=== PATIENT | female | born 1985 | race Caucasian/White ===

== ENCOUNTER 2020-02-27 11:01 | Outpatient (REF) | payer BC, SELFPAY ==
[2020-02-28 12:57] LABS: H Pylori Breath Test NOT DETECTED (NOT DETECTED)
== END 2020-02-27 11:02 | disposition home or self-care (01) ==
LOC: HO.LNP 11:01
PROVIDERS: PCP Internal Medicine; Referring Provider Internal Medicine; Visit Provider Surgery
DX: Z01.818 Encounter for other preprocedural examination (principal); E66.01 Morbid (severe) obesity due to excess calories; Z68.42 Body mass index [BMI] 45.0-49.9, adult; R06.02 Shortness of breath
CPT/HCPCS: 83013

== ENCOUNTER → 2020-03-12 08:06 | Outpatient (BNVA) | payer BC, SELFPAY | PROVIDERS: PCP Internal Medicine; Visit Provider Surgery | DX: Z76.89 Persons encountering health services in other specified circumstances (principal) ==

== ENCOUNTER 2020-03-23 12:38 | Outpatient (REF) | payer BC, SELFPAY ==
--- NOTE | 2020-03-23 12:46 | ECG_ITS ---
Test Reason : BARIATRIC SURG ANEST Blood Pressure : / mmHG Vent. Rate : 081 BPM Atrial Rate : 081 BPM P-R Int : 142 ms QRS Dur : 078 ms QT Int : 398 ms P-R-T Axes : 050 041 036 degrees QTc Int : 462 ms Normal sinus rhythm Normal ECG No previous ECGs available Referred By: Rosie Lyons Electronically Signed By:AUSTIN GRANT
--- NOTE | 2020-03-23 13:06 | XR_ITS ---
EXAMINATION: XR CHEST CLINICAL INFORMATION: Shortness of breath COMPARISON: None TECHNIQUE: 2 views of the chest were obtained. FINDINGS: No significant abnormality is noted involving the heart, lungs, mediastinum, bony thorax or soft tissues. XR/XR chest 2V IMPRESSION: Unremarkable examination.
[2020-03-23 13:42] LABS: MANUAL DIFF FLAG NO
[2020-03-23 13:49] LABS: Basophils Percent Auto 0.7 % (0-2); Eosinophils Absolute Auto 0.1 X10*3/uL (0.0-0.4); Hematocrit 42.2 % (37-47); Hemoglobin 13.6 g/dl (12.0-16.0); Imm Gran Abs Auto 0.01 X10*3/uL (0.00-0.03); Imm Gran Pct Auto 0.2 % (0.0-0.4); Lymphocytes Absolute Auto 1.4 X10*3/uL (1.2-4.9); Lymphocytes Percent Auto 22.5 % (20-40); Mean Corpuscular HGB Conc 32.2 g/dl (31.0-35.0); Mean Corpuscular Hemoglobin 28.5 pg (27.0-33.0); Mean Corpuscular Volume 88.3 fL (80-98); Mean Platelet Volume 9.5 fL (9.4-12.3); Monocytes Absolute Auto 0.4 X10*3/uL (0.1-1.2); Monocytes Percent Auto 6.8 % (2-11); Neutrophils Absolute Auto 4.2 X10*3/uL (2.0-8.3); Neutrophils Percent Auto 68.8 % (45-73); Platelet Count 296 X10*3/uL (160-400); Red Blood Count 4.78 X10*6/uL (4.20-5.50); Red Cell Distribution Width 13.3 % (11.0-16.0)
[2020-03-23 14:11] LABS: Alanine Aminotransferase 26 U/L (0-31); Albumin Level 4.3 g/dL (3.5-5.0); Alkaline Phosphatase 73 U/L (39-117); Anion Gap 15 (12-20); Aspartate Amino Transferase 20 U/L (5-31); Bilirubin Total 0.4 mg/dL (0.0-1.0); Blood Urea Nitrogen 11 mg/dL (9-16); C Reactive Protein 1.29 mg/dL (< or = 0.50); Calcium 9.1 mg/dL (8.4-10.2); Carbon Dioxide 23 mmol/L (22-29); Chloride 105 mmol/L (96-108); Cholesterol 203 mg/dL; Estimated Glomerular Filt Rate > 60; Glucose Fasting 91 mg/dL (60-99); HDL Cholesterol 48 mg/dL; Iron 47 mcg/dL (30-160); LDL Cholesterol Calculated 136 mg/dl; Percent Iron Saturation 13 % (15-50); Potassium 4.2 mmol/l (3.3-5.1); Sodium 139 mmol/L (135-145); Total Iron Binding Capacity 356 mcg/dL (228-428); Total Protein 7.4 g/dL (6.5-8.0); Triglycerides 97 mg/dL; Unsaturated Iron Binding 309 ug/dL
[2020-03-23 14:17] LABS: Thyroid Stimulating Hormone 1.76 uIU/mL (0.32-4.0); Vitamin D 25-OH Total 28.7 ng/mL (>30)
[2020-03-23 14:23] LABS: Vitamin B12 640 pg/mL (200-900)
[2020-03-25 10:42] LABS: Calcium (PTHI) 9.2 mg/dL (8.6-10.2); PTHI 34 pg/mL (14-64)
[2020-03-26 00:53] LABS: Zinc 70 mcg/dL (60-130)
[2020-03-26 18:33] LABS: Vitamin B1 9 nmol/L (8-30)
[2020-03-28 16:07] LABS: Vitamin A 32 mcg/dL (38-98)
== END 2020-03-23 12:39 | disposition home or self-care (01) ==
LOC: HO.LAB 12:38
PROVIDERS: PCP Internal Medicine; Visit Provider Surgery
DX: Z01.818 Encounter for other preprocedural examination (principal); R06.02 Shortness of breath
CPT/HCPCS: 36415; 71046; 80053; 80061; 82306; 82607; 83540; 83970; 84425; 84443; 84590; 84630; 85025; 86140; 93005

== ENCOUNTER → 2020-03-26 08:11 | Outpatient (BNVA) | payer BC, SELFPAY | PROVIDERS: PCP Internal Medicine; Visit Provider Dietitian, Registered ==

== ENCOUNTER → 2020-04-16 08:28 | Outpatient (BNVA) | payer BC, SELFPAY | PROVIDERS: PCP Internal Medicine; Visit Provider Dietitian, Registered ==

== ENCOUNTER 2020-05-22 16:17 | Outpatient (REF) | payer BC, SELFPAY ==
[2020-05-28 10:36] LABS: Vitamin A 50 mcg/dL (38-98)
== END 2020-05-22 16:18 | disposition home or self-care (01) ==
LOC: HO.LAB 16:17
PROVIDERS: Visit Provider Surgery
DX: Z01.818 Encounter for other preprocedural examination (principal); E50.9 Vitamin A deficiency, unspecified
CPT/HCPCS: 36415; 84590

== ENCOUNTER → 2020-05-25 15:47 | Outpatient (BNVA) | payer BC, SELFPAY | PROVIDERS: PCP Internal Medicine; Visit Provider Surgery ==

== ENCOUNTER → 2020-07-16 13:34 | Outpatient (BNVA) | payer BC, SELFPAY | PROVIDERS: PCP Internal Medicine; Visit Provider Surgery ==

== ENCOUNTER → 2020-07-28 15:12 | Outpatient (BNVA) | payer BC, SELFPAY | PROVIDERS: PCP Internal Medicine; Visit Provider Surgery | DX: Z01.818 Encounter for other preprocedural examination (principal); R06.02 Shortness of breath ==

== ENCOUNTER → 2020-08-07 13:21 | Outpatient (BNVA) | payer BC, SELFPAY | PROVIDERS: PCP Internal Medicine; Visit Provider Surgery ==

== ENCOUNTER 2020-08-11 06:37 | Inpatient (IN) | payer BC, SELFPAY ==
[2020-08-04 16:28] VITALS: BMI 44.2
--- NOTE | 2020-08-07 15:41 | ECG_ITS ---
Test Reason : R06.02 SOB Blood Pressure : / mmHG Vent. Rate : 077 BPM Atrial Rate : 077 BPM P-R Int : 122 ms QRS Dur : 080 ms QT Int : 426 ms P-R-T Axes : 050 054 053 degrees QTc Int : 482 ms Normal sinus rhythm with sinus arrhythmia Prolonged QT Abnormal ECG When compared with ECG of 23-MAR-2020 12:57, No significant change was found Referred By: Rosie Lyons Electronically Signed By:Ramírez Mckenna
[2020-08-07 16:31] LABS: Glucose Urine UA NEG (NEG); Leukocyte Esterase Urine NEG (NEG); Nitrite Urine NEG (NEG); UPreg QC Valid YES; Urine Blood NEG (NEG); Urine Ketones NEG (NEG); Urine Pregnancy NEGATIVE (NEGATIVE); Urine Protein NEG (NEG-TRACE)
[2020-08-07 16:32] LABS: Appearance Urine CLEAR; Color Urine YELLOW
[2020-08-08 11:17] LABS: MANUAL DIFF FLAG NO
[2020-08-08 11:26] LABS: Basophils Percent Auto 0.4 % (0-2); Eosinophils Absolute Auto 0.1 X10*3/uL (0.0-0.4); Hematocrit 41.7 % (37-47); Hemoglobin 13.5 g/dl (12.0-16.0); Imm Gran Abs Auto 0.01 X10*3/uL (0.00-0.03); Imm Gran Pct Auto 0.2 % (0.0-0.4); Lymphocytes Absolute Auto 1.3 X10*3/uL (1.2-4.9); Lymphocytes Percent Auto 25.5 % (20-40); Mean Corpuscular HGB Conc 32.4 g/dl (31.0-35.0); Mean Corpuscular Hemoglobin 29.2 pg (27.0-33.0); Mean Corpuscular Volume 90.3 fL (80-98); Monocytes Absolute Auto 0.4 X10*3/uL (0.1-1.2); Monocytes Percent Auto 7.4 % (2-11); Neutrophils Absolute Auto 3.4 X10*3/uL (2.0-8.3); Neutrophils Percent Auto 65.5 % (45-73); Platelet Count 298 X10*3/uL (160-400); Red Blood Count 4.62 X10*6/uL (4.20-5.50); Red Cell Distribution Width 12.8 % (11.0-16.0); White Blood Count 5.1 X10*3/uL (4.8-10.8)
[2020-08-08 11:45] LABS: Anion Gap 14 (12-20); Blood Urea Nitrogen 15 mg/dL (9-16); Carbon Dioxide 23 mmol/L (22-29); Chloride 107 mmol/L (96-108); Estimated Glomerular Filt Rate > 60; Glucose Random 109 mg/dL (60-115); Potassium 4.6 mmol/L (3.3-5.1); Sodium 139 mmol/L (135-145)
[2020-08-08 11:52] LABS: Prothrombin Time 12.2 SEC (10.8-13.0)
[2020-08-08 11:55] LABS: Partial Thromboplastin Time 34.5 SEC (24.1-38.0)
--- NOTE | 2020-08-10 08:51 | HO.ANESPROP2 ---
Documented by User: Kinsey Pak 08/10/20 08:53 HPI - Anesthesia Eval Consult details Narrative: 34yo F for Gastrectomy Sleeve,EGD,poss diaphragmatic hernia,poss ventral hernia,poss open, PMFSH Active Problems Active Problems: All Active Problems (Updated 08/04/20 @ 16:24 by Grisel Cisneros) Preoperative examination (Acute) Body mass index (BMI) of 45.0-49.9 in adult (Acute) Shortness of breath (Acute) Vitamin A deficiency (Acute) BMI 40.0-44.9, adult (Acute) Morbid obesity due to excess calories (Acute) Past Medical History Medical History Anxiety Depression Headache Low back pain Morbid obesity due to excess calories PCOS (polycystic ovarian syndrome) Family History Family History Mother Breast cancer Factor 5 Leiden mutation, heterozygous Maternal Grandmother Breast cancer Brother Factor 5 Leiden mutation, heterozygous Sister No problems noted. Father Heart attack Heart disease Maternal Grandfather Colon cancer Type 2 diabetes mellitus Paternal Grandmother Type 2 diabetes mellitus Paternal Grandfather Type 2 diabetes mellitus Surgical History Surgical History History of adjustable gastric banding History of removal of laparoscopic gastric banding device History of removal of ovarian cyst History of tonsillectomy and adenoidectomy Hx of wisdom tooth extraction Social History Social History Are you a primary career consultant to a significant other at home: No Do you presently have visiting nurse or other home services: No Alcohol intake: current Alcohol intake frequency: a few times a month Patient Tobacco Use Status: Never used Tobacco Use of substances other than those prescribed or required for medical reasons: No Have you been hit, kicked, punched, or otherwise hurt by someone within the past year? If so, by whom?: No Are you DNR?: No Advance Directives: No Advance Directives Information Provided: No Advance Directives on File: No Patient : No FDLMP: 07/04/2020 : No Poor oral hygiene: No Meds Allergies Allergy/AdvReac Type Severity Reaction Status Date / Time latex Allergy Severe Rash, Verified 08/04/20 16:33 brady skin Home Medications Medication Instructions Recorded Confirmed Last Taken Type bupropion HCl 150 mg 24 hr tablet, 150 mg PO DAILY 02/27/20 08/04/20 Unknown History extended release fluoxetine 20 mg capsule 20 mg PO DAILY 02/27/20 07/28/20 Unknown History trazodone 50 mg tablet 25 mg PO BEDTIME PRN 02/27/20 08/04/20 Unknown History cholecalciferol (vitamin D3) 250 250 mcg PO DAILY 05/25/20 08/04/20 Unknown History mcg (10,000 unit) capsule drospirenone 3 mg-ethinyl 1 tab PO DAILY 05/25/20 08/04/20 Unknown History estradiol 0.02 mg tablet alprazolam 0.5 mg tablet 0.5 mg PO BID PRN 07/28/20 08/04/20 Unknown History Exam Exam Date and Time: August 10, 2020 0851 Height,Weight and Vital Signs: Height 5 ft 2 in Weight 109.769 kg Pertinent Lab Results Pertinent Lab Results: Laboratory Tests 08/07/20 08/07/20 08/08/20 15:35 15:35 10:53 WBC 5.1 RBC 4.62 Hgb 13.5 Hct 41.7 MCV 90.3 MCH 29.2 MCHC 32.4 RDW 12.8 Plt Count 298 MPV 9.0 L Immature Gran % (Auto) 0.2 Neut % (Auto) 65.5 Lymph % (Auto) 25.5 Walker % (Auto) 7.4 Eos % (Auto) 1.0 Baso % (Auto) 0.4 Lymph # (Auto) 1.3 Walker # (Auto) 0.4 Eos # (Auto) 0.1 Baso # (Auto) 0.0 Abs Immat Gran (auto) 0.01 Absolute Neuts (auto) 3.4 Absolute Nucleated RBC 0.000 Nucleated RBC % (auto) 0.0 PT INR APTT Sodium Potassium Chloride Carbon Dioxide Anion Gap BUN Creatinine Estim Creat Clear Calc Estimated GFR Random Glucose Calcium Albumin Urine Color YELLOW Urine Appearance CLEAR Urine pH 6.0 Ur Specific Ringold 1.020 Urine Protein NEG Urine Glucose (UA) NEG Urine Ketones NEG Urine Blood NEG Urine Nitrite NEG Ur Leukocyte Esterase NEG Urine Test NEGATIVE Blood Type Antibody Screen 08/08/20 08/08/20 08/08/20 10:53 10:53 10:55 WBC RBC Hgb Hct MCV MCH MCHC RDW Plt Count MPV Immature Gran % (Auto) Neut % (Auto) Lymph % (Auto) Walker % (Auto) Eos % (Auto) Baso % (Auto) Lymph # (Auto) Walker # (Auto) Eos # (Auto) Baso # (Auto) Abs Immat Gran (auto) Absolute Neuts (auto) Absolute Nucleated RBC Nucleated RBC % (auto) PT 12.2 INR 1.0 APTT 34.5 Sodium 139 Potassium 4.6 Chloride 107 Carbon Dioxide 23 Anion Gap 14 BUN 15 Creatinine 0.82 Estim Creat Clear Calc 115.0 Estimated GFR > 60 Random Glucose 109 Calcium 9.0 Albumin 4.0 Urine Color Urine Appearance Urine pH Ur Specific Ringold Urine Protein Urine Glucose (UA) Urine Ketones Urine Blood Urine Nitrite Ur Leukocyte Esterase Urine Test Blood Type A Positive Antibody Screen NEGATIVE Narrative Narrative: EKG 08/2020 Vent. Rate : 077 BPM Atrial Rate : 077 BPM P-R Int : 122 ms QRS Dur : 080 ms QT Int : 426 ms P-R-T Axes : 050 054 053 degrees QTc Int : 482 ms Normal sinus rhythm with sinus arrhythmia Prolonged QT Abnormal ECG When compared with ECG of 23-MAR-2020 12:57, No significant change was found Assessment and Plan Assessment Anesthesia Assessment: Chart Reviewed Documented by User: Jagdeep Jones 08/11/20 07:04 [facility] Past Medical History Medical History Anxiety Depression Headache Low back pain Morbid obesity due to excess calories PCOS (polycystic ovarian syndrome) Family History Family History Mother Breast cancer Factor 5 Leiden mutation, heterozygous Maternal Grandmother Breast cancer Brother Factor 5 Leiden mutation, heterozygous Sister No problems noted. Father Heart attack Heart disease Maternal Grandfather Colon cancer Type 2 diabetes mellitus Paternal Grandmother Type 2 diabetes mellitus Paternal Grandfather Type 2 diabetes mellitus Surgical History Surgical History History of adjustable gastric banding History of removal of laparoscopic gastric banding device History of removal of ovarian cyst History of tonsillectomy and adenoidectomy Hx of wisdom tooth extraction Social History Social History Are you a primary career consultant to a significant other at home: No Do you presently have visiting nurse or other home services: No Alcohol intake: current Alcohol intake frequency: a few times a month Patient Tobacco Use Status: Never used Tobacco Use of substances other than those prescribed or required for medical reasons: No Have you been hit, kicked, punched, or otherwise hurt by someone within the past year? If so, by whom?: No Are you DNR?: No Advance Directives: No Advance Directives Information Provided: No Advance Directives on File: No Patient : No FDLMP: 07/04/2020 : No Poor oral hygiene: No Meds Allergies Allergy/AdvReac Type Severity Reaction Status Date / Time latex Allergy Severe Rash, Verified 08/04/20 16:33 brady skin Home Medications Medication Instructions Recorded Confirmed Last Taken Type bupropion HCl 150 mg 24 hr tablet, 150 mg PO DAILY 02/27/20 08/04/20 Unknown History extended release fluoxetine 20 mg capsule 20 mg PO DAILY 02/27/20 07/28/20 Unknown History trazodone 50 mg tablet 25 mg PO BEDTIME PRN 02/27/20 08/04/20 Unknown History cholecalciferol (vitamin D3) 250 250 mcg PO DAILY 05/25/20 08/04/20 Unknown History mcg (10,000 unit) capsule drospirenone 3 mg-ethinyl 1 tab PO DAILY 05/25/20 08/04/20 Unknown History estradiol 0.02 mg tablet alprazolam 0.5 mg tablet 0.5 mg PO BID PRN 07/28/20 08/04/20 Unknown History Exam Airway Mallampati Class: III TM Dist: >3cm Neck ROM: Full Loose/Missing/Broken Teeth: No Heart: [id number] Lungs: cta b/l Assessment and Plan Assessment Anesthesia Assessment: Anesthesia Plan Discussed, PAT Visit and Chart Reviewed Final Anesthetic Review NPO: Yes ASA Class: II Final Preanesthetic Review: No Changes in Pt Med Stat, Meds/Allgs Chart Reviewed, Consent Obtained/Reviewed and Anes Risks/Benef Reviewed Patient Risk: Intermediate Procedure Risk: Low Assessment/Block/Sedation in SS: Assess/Block/Sedation-SS Anesthetic Plan Anesthetic Plan: GA and Agree w/ Assess. and Plan
[2020-08-11] VITALS (16 sets, daily range): BP systolic 112–148; BP diastolic 67–93; PULSE 67–98; RESP 16–22; TEMP 36.1–36.7; O2SAT 97–100
--- NOTE | ~2020-08-11 | XR_ITS ---
EXAMINATION: XR CHEST CLINICAL INFORMATION: Shortness of breath COMPARISON: Previous chest x-ray March 2020 TECHNIQUE: 2 views of the chest were obtained. FINDINGS: The cardiac and mediastinal contours are normal. The lungs are clear. There is no pleural effusion or pneumothorax. There are degenerative changes of the spine. XR/XR chest 2V IMPRESSION: No evidence for acute disease in the chest.
[2020-08-11] MEDS: Scopolamine 1.5 MG PATCH.TD.3 TRANSDERMA (06:53)
[2020-08-11 06:58] LABS: COVID-19 Test Negative (Negative); IDNOW Serial# 9DD0AD1C
--- NOTE | 2020-08-11 07:40 | MHC.SHP ---
Pre-Procedural Eval Section B Chief Complaint: s/p gastric sleeve Allergies: Allergies Allergy/AdvReac Type Severity Reaction Status Date / Time latex Allergy Severe Rash, Verified 08/04/20 16:33 brady skin Plan I have reviewed the history and physical and performed a pertinent physical examination on my patient. No changes have occurred unless specified.
[2020-08-11] MEDS: Lactated Ringers 1,000 ML 100 ML IVCONT (07:46)
[2020-08-11 08:00] LABS: UPreg QC Valid YES; Urine Pregnancy NEGATIVE (NEGATIVE)
--- NOTE | 2020-08-11 10:40 | PM.OP ---
Brief Operative Note Date of Service: 08/11/20 Pre-op diagnosis: Morbid obesity BMI 44.4 Post-op diagnosis: other (Hiatal hernia) Procedure: Laparoscopic sleeve gastrectomy, hiatal hernia repair, Aroldo block, and intraoperative endoscopy Implants: covidien teresita Surgeon: Rosie Lyons MD Anesthesia: GETA Was an Non Licensed Nuclear Plant Operator used for this Procedure?: Yes Non Licensed Nuclear Plant Operator: Sonia Corrales Estimated blood loss (mL): 10 Pathology: other (Partial gastrectomy) Condition: stable Disposition: PACU
--- NOTE | 2020-08-11 10:42 | P.OP_ITS ---
Operative Note Operative Note Date of Service: 08/11/20 Narrative: Patient was brought into the operating room and placed on the operating room table in the supine position. General anesthesia was induced. Normal DVT prophylaxis was instituted and the patient received 2 grams of cefotetan preoperatively. The abdomen was then prepped and draped in the normal sterile fashion. A safety time-out was performed. A mixture of 1% lidocaine with epinephrine and ?% Marcaine plain was used to an esthetize the planned incision site in the left upper quadrant. A #11 scalpel was used to make a 5 mm left upper quadrant transverse incision through which a veress needle was placed. Three pops were heard going through the fascia. A saline drop test was used to confirm that the veress needle was intraabdominal. An optiview technique was then used to place a 5mm port in the left upper quadrant. A 5 mm 30 degree laproscope was then placed through this port and the abdominal cavity was surveyed and there were a few omental adhesions to the epigastric abdominal wall. We took these of mental adhesions down using LigaSure device. The patient was placed in reverse Trendelenburg positioning. A ronan liver retractor was then placed in the subxyphoid position and it was used to hold up the left lobe of the liver to the abdominal wall. This was secured to the bed using the liver retractor sharif. A FABIÁN block was then performed for pain control on the right side of the abdomen. A 5 mm port was placed in the right upper quadrant near the falciform ligament. A 12 mm port was then placed in the mid epigastrium. One additional 5 mm port was placed in the left upper quadrant just to the left of the placement of the first port. I then performed a FABIÁN block on the left side of the abdomen. I then removed the epigastric fat pad; there was a moderate anterior hiatal hernia noted. I reapproximated the left and right crura with a total of 2 stitches of 2-0 ethibond and a laparoscopic knot pusher. There was no residual hiatal hernia. We took down the adhesions the medial aspect of the stomach to the overlying left lobe of the liver where the previous gastric band had been placed. We also opened up the previous fundoplication from the prior gastric banding. This dissection was com pleted using LigaSure device. I then opened up the angle of His. We then gained entry into the lesser sac about 4-5 cm from the pylorus. I had anesthesia place a 34 Kazakh orogastric tube into the distal antrum to use as a sizing tool for gastric pouch size. I divided the short gastric vessels up to the angle of His. We then started the creation of the gastric pouch by firing a 60 mm purple load endostapler up the stomach about 4-5 cm from the pylorus. We completed the creation of the gastric pouch using a total of 4 firings of a 60 mm purple load stapler. We had anesthesia remove the orogast scottie tube, then we clamped across the distal antrum using a fired 60 mm endostapler. We flattened the patient and then instilled normal saline surrounding the newly created staple line. I then performed an on-table endoscopy. I passed the gastroscopy into the posterior oropharynx and down the esophagus evaluating the esophageal mucosa which was normal. There was no evidence of hiatal hernia. I passed the gastroscope into the gastric pouch and insufflated the gastric pouch. There was healthy pink mucosa and no evidence of active bleeding. There was no evidence of leak on laparoscopy. I desufflated the gastric pouch and removed the endoscope. I removed the endostapler from the abdomen and suctioned the fluid from the left upper quadrant. I then removed the partial gastrectomy specimen through the epigastric 12 mm port site. I reapproximated the 12 mm port using a 0 maxon suture with a laparoscopic suture passer. I instilled local anesthetic into the fascial closure site and tied the suture down at a pressure of 8-10 mm of Hg. There was no residual fascial defect. We removed the liver retractor and the left upper quadrant 5 mm ports under direct visualization. There was no evidence of any active bleeding. I desufflated the abdomen through the last remaining port and removed the laparoscope and 5 mm port. We reapproximated all incisions with a 4-0 monocryl subcuticular stitch. We cleaned and dried the abdominal skin and applied dermabond skin glue. All count were correct at the end of the case. The patient was awake and in stable condition prior to extubation and transfer to [facility] recovery room.
[2020-08-11] MEDS: fentaNYL citrate/PF 100 MCG/2 ML VIAL 50 MCG IVPUSH ×2 (10:47→10:58)
--- NOTE | 2020-08-11 11:00 | P.DS_ITS ---
DS: Providers Provider Date of Service: 08/12/20 Date of admission: 08/11/20 06:37 Primary care physician: Shahram Herrmann MD DS: Medications Discharge Medications Home Medications: Home Medications Medication Instructions Recorded Confirmed bupropion HCl 150 mg 24 hr tablet, 150 mg PO DAILY 02/27/20 08/04/20 extended release fluoxetine 20 mg capsule 20 mg PO DAILY 02/27/20 07/28/20 trazodone 50 mg tablet 25 mg PO BEDTIME PRN 02/27/20 08/04/20 cholecalciferol (vitamin D3) 250 250 mcg PO DAILY 05/25/20 08/04/20 mcg (10,000 unit) capsule drospirenone 3 mg-ethinyl 1 tab PO DAILY 05/25/20 08/04/20 estradiol 0.02 mg tablet alprazolam 0.5 mg tablet 0.5 mg PO BID PRN 07/28/20 08/04/20 Previous Rx's Medication Instructions Recorded acetaminophen 500 mg tablet 1,000 mg PO Q6H PRN #30 tab 07/28/20 famotidine 20 mg tablet 20 mg PO DAILY #30 tab 07/28/20 simethicone 80 mg chewable tablet 80 mg PO TID-QID PRN #30 tab 07/28/20 DS: Summary Time Spent with Patient Time attestation: DATE OF SERVICE: August 11, 2020 ADMITTING DIAGNOSES: morbid obesity, s/p gastric band removal DISCHARGE DIAGNOSES: same, s/p laparoscopic sleeve gastrectomy and hiatal hernia repair PROCEDURE PERFORMED: laparoscopic sleeve gastrectomy and hiatal hernia repair DISCHARGE MEDICATIONS: 1. Simethicone 80mg q4h prn gas 2. Ondansetron 4mg po tid prn nausea 3. Famotidine 20mg po bid 4. Docusate sodium 100mg po bid DISCHARGE INSTRUCTIONS: The patient should continue on the stage III bariatric diet, which includes 3 protein shakes of at least 20-30g of protein on a daily basis. The patient was encouraged to avoid drinking liquids with her protein shakes. She should wait 30-45 minutes in between her meals and drinking water. She should drink at least 40-60 ounces of water on a daily basis. She should ambulate while at home to avoid any blood clots in her lower extremities. She should call with any questions or concerns such as increase in abdominal pain, persistent nausea, vomiting, redness and drainage from her incisions, fever, chills, shortness of breast, or chest pain beyond what is normal for her. The patient should avoid all heavy lifting greater than 5 pounds for the next 4 weeks. The patient is already scheduled to follow up with me in 2 weeks time, but should call the office with any questions prior to that follow up appointment. The patient should not advance her diet until she is seen in the office for the 2 week appointment. HOSPITAL COURSE: The patient was admitted after undergoing laparoscopic sleeve gastrectomy. She was started on stage II diet and was tolerating well without nausea or vomiting. Her pain was controlled on IV Dilaudid. All labs were within normal limits. On post-operative day #2 she was feeling better, nausea and epigastric pain improved and she was tolerating stage III bariatric diet well. She was discharged home. DISCHARGE DISPOSITION: Home., but should call the office with any questions prior to that follow up appointment. The patient should not advance her diet until she is seen in the office for the 2 week appointment. HOSPITAL COURSE: The patient was admitted after undergoing laparoscopic sleeve gastrectomy. She was started on stage II diet and was tolerating well without nausea or vomiting. Her pain was controlled on IV Dilaudid. All labs were within normal limits. On post-operative day #2 she was feeling better, nausea and epigastric pain improved and she was tolerating stage III bariatric diet well. She was discharged home. DISCHARGE DISPOSITION: Home.Total time spent providing and/or coordinating discharge services: a15 Discharge coordination time: Less than 30 minutes Quality: Stroke Does the patient have a stroke diagnosis?: No Physical Exam Vital Signs: Vital Signs: Last Vital Signs Temp 97.7 F 08/11/20 10:36 Pulse 98 08/11/20 10:46 Resp 20 08/11/20 10:58 BP 139/87 08/11/20 10:46 Pulse Ox 100 08/11/20 10:46 Body Mass Index 44.2 DS: Data Data Completed and Pending Pending studies at discharge: Pending at discharge 08/11/20 10:13 Surgical [PTH] Routine Labs on day of discharge: Laboratory Results - last 24 hr 08/11/20 08/11/20 06:14 07:51 Urine Test NEGATIVE COVID-19 (CAROLINE) Negative COVID-19 Clin Com See Note Discharge Plan Discharge Anticipated Discharge Date/Time: 08/12/20 10:56 Patient Disposition: Home, Self-Care Discharge Diagnosis: s/p sleeve gastrectomy Referrals: Shahram Herrmann MD [Primary Care Provider] - 1 Week Discharge Medications: Continued bupropion HCl 150 mg tablet extended release 24 hr 150 mg PO DAILY RF: 0 fluoxetine [Prozac] 20 mg capsule 20 mg PO DAILY RF: 0 trazodone 50 mg tablet 25 mg PO BEDTIME PRN (Reason: Insomnia) RF: 0 acetaminophen [Tylenol Extra Strength] 500 mg tablet 1,000 mg PO Q6H PRN (Reason: pain) Qty: 30 RF: 1 famotidine [Pepcid AC] 20 mg tablet 20 mg PO DAILY Qty: 30 RF: 1 simethicone [Gas Relief (simethicone)] 80 mg tablet,chewable 80 mg PO TID-QID PRN (Reason: abdominal distention) Qty: 30 RF: 1 alprazolam [Xanax] 0.5 mg tablet 0.5 mg PO BID PRN (Reason: anxiety) RF: 0 cholecalciferol (vitamin D3) 250 mcg (10,000 unit) capsule 250 mcg PO DAILY RF: 0 Held drospirenone-ethinyl estradiol [Marixa (28)] 3-0.02 mg tablet 1 tab PO DAILY RF: 0 Hold Instructions: Restart in 3 weeks. Discharge Orders: Discharge Order (Routine); Ordered 08/12/20 Ordered By: Rosie Lyons Diet: other Activity on Discharge: No heavy lifting Stand Alone Forms: Patient Portal Discharge page Activity Restrictions/Additional Instructions: No tub baths, sex or returning to work until discussed at first post op appointment. No exercise, alcohol, tobacco or illegal drug use. Continue to use incentive spirometer hourly while awake. Walk in home for 5- 10 minutes every 2 hours during the first week. Continue phase 3 diet until first post op appointment. Follow all instructions i n the bariatric handbook and call with any questions.Discharge Instructions 1. Please call your doctor or come back to the emergency room should any new symptoms arise. 2. You will receive a courtesy call from [facility] 24-48 hours after discharge. 3. Activity: abstain from alcohol, practice limited stair climbing, no bending, no driving, no exercise, no illicit substances, no lifting, no sex, no tub bath, no work. 4. Diet: continue stage 3 protein shakes until your [address] Lyons. 5. Dressing Change/Wound Care: Your incision is covered by surgical glue. If the area is tender, you may apply an ice pack for short intervals (no more than 20 minutes on, followed by at least 20 minutes off). Do not apply heat. Do not use creams, lotions, or topical antibiotics unless instructed to do so by your surgeon. These can cause infection or allergic reaction. 6. Call your doctor if: - Your temperature exceeds 101.5 F - You experience excessive pain or swelling - You have an unexpected reaction to medication - You have excessive bleeding - You experience continued vomiting/nausea - Your incision begins to separate - Your incision shows signs of infection such as increased redness, swelling, excessive pain, heat, or drainage (light blood or clear fluid is normal) 7. General instructions: No lifting greater than 5 lbs for the next 4 weeks[address] within 24 hours of taking narcotic pain medications. If you do not move your bowels in the next 2 days, please take milk of magnesia over the counter. Please follow the post op diet and do not advance your diet until you are seen in the office in about 2 weeks. Please walk around your home every hour or two to prevent blood clots from forming in your legs. You do not need to wake from sleeping to walk. Please sleep in a bed or couch to prevent kinking at the hips and knees. Please take your incentive spirometer (your lung home insurance agent) home with you and use it for the next few days to prevent pneumonias. You may shower, no hot tubs, baths or swimming pools. Please call the office with any questions or concerns such as increasing abdominal pain, fever, chills, shortness of breath, chest pain, leg pain or swelling, or redness or drainage from your incisions. Please stay on stage 3 diet which includes sugar free clear liquids such as ice pops and jello and broth and crystal light. Avoid all carbonation. Please drink 3 protein shakes with at least 25-30 grams of protein daily or 3 of the Celebrate 4:1 shakes which can be purchased in our office. The Celebrate shakes have all of the bariatric vitamins you need if you consume these shakes. If you are drinking other protein shakes, you will need to purchase the Celebrate multivitamins and calcium that we provide in the office (they will provide all the vitamins you need). Please make sure you are consuming at least 40-60 ounces of water in addition to your 3 protein shakes daily. Do not hesitate to contact the office with any questions at . Care Plan Goals: weight loss Health Concerns: morbid obesity Plan of Treatment: see discharge instructions Assessment: stable, s/p sleeve gastrectomy and hiatal hernia repair
[2020-08-11] MEDS: HYDROmorphone HCl 0.5 MG/0.5 ML SYRINGE IVPUSH (11:18)
[2020-08-11] MEDS: Famotidine/PF 20 MG/2 ML VIAL IVPUSH ×2 (11:37→20:30)
[2020-08-11] MEDS: Metoclopramide HCl 10 MG/2 ML VIAL IVPUSH ×2 (11:43→19:15)
[2020-08-11] MEDS: Lactated Ringers 1,000 ML 125 ML IVCONT ×2 (13:50→20:30)
[2020-08-11] MEDS: ondansetron HCL 4 MG/2 ML VIAL IVPUSH ×2 (14:28→23:15)
[2020-08-11] MEDS: buPROPion HCl XL 150 MG TAB.ER.24H PO (15:00)
[2020-08-11] MEDS: HYDROmorphone HCl 0.5 MG/0.5 ML SYRINGE 0.25 MG IVPUSH ×2 (15:01→19:20)
[2020-08-11] MEDS: 0.9 % Sodium Chloride Flush 3 ML SYRINGE IVFLUSH (20:30)
[2020-08-11] MEDS: cefoTEtan disodium 2 GM in 0.9 % Sodium Chloride 50 ML IV (20:30)
[2020-08-12] VITALS: BP 140/70; PULSE 114; RESP 19; TEMP 36.5; O2SAT 95
[2020-08-12 00:29] VITALS: PULSE 79
[2020-08-12] MEDS: Metoclopramide HCl 10 MG/2 ML VIAL IVPUSH (02:05)
[2020-08-12] MEDS: HYDROmorphone HCl 0.5 MG/0.5 ML SYRINGE 0.25 MG IVPUSH ×2 (02:05→07:07)
[2020-08-12 04:00] VITALS: BP 123/72; PULSE 71; RESP 18; TEMP 36.5; O2SAT 98
[2020-08-12] MEDS: Lactated Ringers 1,000 ML 125 ML IVCONT (05:10)
[2020-08-12 06:21] LABS: MANUAL DIFF FLAG NO
[2020-08-12 06:43] LABS: Basophils Percent Auto 0.2 % (0-2); Eosinophils Percent Auto 0.1 % (0-4); Hematocrit 37.2 % (37-47); Hemoglobin 12.1 g/dl (12.0-16.0); Imm Gran Abs Auto 0.06 X10*3/uL (0.00-0.03); Imm Gran Pct Auto 0.5 % (0.0-0.4); Lymphocytes Absolute Auto 1.4 X10*3/uL (1.2-4.9); Lymphocytes Percent Auto 11.3 % (20-40); Mean Corpuscular HGB Conc 32.5 g/dl (31.0-35.0); Mean Corpuscular Hemoglobin 29.2 pg (27.0-33.0); Mean Corpuscular Volume 89.9 fL (80-98); Mean Platelet Volume 9.1 fL (9.4-12.3); Monocytes Percent Auto 8.3 % (2-11); Neutrophils Absolute Auto 9.6 X10*3/uL (2.0-8.3); Neutrophils Percent Auto 79.6 % (45-73); Platelet Count 269 X10*3/uL (160-400); Red Blood Count 4.14 X10*6/uL (4.20-5.50); Red Cell Distribution Width 12.5 % (11.0-16.0)
[2020-08-12] MEDS: ondansetron HCL 4 MG/2 ML VIAL IVPUSH (07:07)
[2020-08-12] MEDS: Famotidine/PF 20 MG/2 ML VIAL IVPUSH (07:07)
[2020-08-12 07:10] LABS: Anion Gap 12 (12-20); Calcium 8.5 mg/dL (8.4-10.2); Carbon Dioxide 25 mmol/L (22-29); Chloride 105 mmol/L (96-108); Creatinine Clr Calc Pharmacy 132.8; Estimated Glomerular Filt Rate > 60; Glucose Random 111 mg/dL (60-115); Sodium 138 mmol/L (135-145)
[2020-08-12] MEDS: buPROPion HCl XL 150 MG TAB.ER.24H PO (07:16)
[2020-08-12 07:35] LABS: Blood Urea Nitrogen 5 mg/dL (9-16)
[2020-08-12 08:00] VITALS: BP 132/82; PULSE 64; RESP 19; TEMP 36.4; O2SAT 98
--- NOTE | 2020-08-12 08:33 | P.PNGS_ITS ---
Subjective Subjective Date of Service: 08/12/20 <Estella Moe PA-C - Last Filed: 08/12/20 10:42> 08/12/20 <Rosie Lyons MD - Last Filed: 08/12/20 09:38> Interval history: Pod #1 s/p LSG and HH. Doing well. Tolerating stage 3 diet, ambulating in hallway. Pain well controlled. Has some nausea and minimal spit up of mucus/spit. Vitals and labs reviewed and are within limit for post op day 1. On exam, patient is well appearing, abdomen is soft, nd, mild appropriate incisional tenderness. Incisions c/d/I with dermabond in place. Plan: d/c home today. Follow up with me in 2 weeks. <Estella Moe PA-C - Last Filed: 08/12/20 10:42> Patient seen and examined. I agree with the assessment and plan and physical exam from the physician's healthcare administrative assistant. Patient will be discharged home later today. <Rosie Lyons MD - Last Filed: 08/12/20 09:38> Physical Exam Vital Signs: Vital Signs: Last Vital Signs Temp 97.6 F 08/12/20 08:00 Pulse 64 08/12/20 08:00 Resp 19 08/12/20 08:00 BP 132/82 08/12/20 08:00 Pulse Ox 98 08/12/20 08:00 Body Mass Index 44.2 <Estella Moe PA-C - Last Filed: 08/12/20 10:42> Const: General: cooperative, comfortable, no acute distress, alert and awake <Estella Moe PA-C - Last Filed: 08/12/20 10:42> Nutritional Appearance: obese <Estella Moe PA-C - Last Filed: 08/12/20 10:42> GI: Inspection: Yes normal to inspection, No distended and Yes incision (clean, dry, intact, dermabond in place) <Estella Moe PA-C - Last Filed: 08/12/20 10:42> Palpation (GI): Soft to palpation and Tenderness to palpation present (GI) (mild appropriate incisional tenderness) <Estella Moe PA-C - Last Filed: 08/12/20 10:42> Extrem: Right lower extremity: lower leg Details: no tenderness; no edema <Estella Moe PA-C - Last Filed: 08/12/20 10:42> Left lower extremity: lower leg Details: no tenderness; no edema <SRIRAM Stanley Last Filed: 08/12/20 10:42> Progress Note: A&P Assessment and plan (1) S/P laparoscopic sleeve gastrectomy: Status: Acute <SRIRAM Stanley Last Filed: 08/12/20 10:42> (2) History of repair of hiatal hernia: Status: Acute <Estella Moe PA-C - Last Filed: 08/12/20 10:42> (3) Morbid obesity due to excess calories: Status: Acute <SRIRAM Stanley Last Filed: 08/12/20 10:42> Assessment and Plan: POD #1: Patient is doing well and will be discharged home today. All the discharge instructions were reviewed with the patient and given in writing. Patient will follow up as scheduled in 2 weeks. <Estella Moe PA-C - Last Filed: 08/12/20 10:42> Fall Risk Details Current Medications: Current Medications Generic Name Dose Route Start Last Admin Trade Name Freq PRN Reason Stop Dose Admin Alprazolam 0.5 mg 08/11/20 12:34 Alprazolam 0.5 Mg Tablet PO BID PRN anxiety Bupropion HCl 150 mg 08/11/20 15:00 08/12/20 07:16 Bupropion Hcl Xl 150 Mg Tab.Er.24h PO 150 mg DAILY NORBERTO Administration Famotidine 20 mg 08/11/20 12:00 08/12/20 07:07 Famotidine/Pf 20 Mg/2 Ml Vial IVPUSH 20 mg BID NORBERTO Administration Hydromorphone HCl 0.25 mg 08/11/20 12:34 08/12/20 07:07 Hydromorphone Hcl 0.5 Mg/0.5 Ml Syringe IVPUSH 0.25 mg Q4H PRN Administration Pain, Moderate (Pain Scale 4-6 Lactated Ringer's 1,000 mls @ 125 mls/hr 08/11/20 12:34 08/12/20 05:10 Lr IVCONT 125 mls/hr .Q8H NORBERTO Administration Acetaminophen 1,000 mg in 100 mls @ 16.7 mls/hr 08/11/20 15:00 08/12/20 02:55 Ofirmev IV 16.7 mls/hr .Q6H NORBERTO Administration Metoclopramide HCl 10 mg 08/11/20 11:40 08/12/20 02:05 Metoclopramide Hcl 10 Mg/2 Ml Vial IVPUSH 10 mg Q6H PRN Administration Nausea Ondansetron HCl 4 mg 08/11/20 16:00 08/12/20 07:07 Ondansetron Hcl 4 Mg/2 Ml Vial IVPUSH 4 mg Q8H NORBERTO Administration Sodium Chloride 3 ml 08/11/20 16:00 08/12/20 07:16 0.9 % Sodium Chloride Flush 3 Ml Syringe IVFLUSH Not Given QSHIFT NORBERTO Trazodone HCl 25 mg 08/11/20 12:34 Trazodone Hcl 25 Mg Halftab PO BEDTIME PRN Insomnia <Estella Moe PA-C - Last Filed: 08/12/20 10:42> Time Spent With Patient Time: Total time spent is greater than 50% in coordination of care (as documented) at patient's floor/unit and/or counseling patient: <Estella Moe PA-C - Last Filed: 08/12/20 10:42> Time with patient: less than 15 minutes <Rosie Lyons MD - Last Filed: 08/12/20 09:38> Procedures Date of Service Date of Service: 08/12/20 <Rosie Lyons MD - Last Filed: 08/12/20 09:38>
--- NOTE | 2020-08-12 09:56 | MHC.CM.PN ---
NURSE CAR WASH MANAGER NOTE ELECTRONIC MEDICAL RECORD REVIEWED ALONG WITH CASE DISCUSSED WITH STAFF NURSE AND SURGEON. MET WITH PATIENT SHEIS ACTIVE, INDEPENDENT IN [facility] AND MOBILITY AND IS EMPLOYED , SHE HAS NO SERVICES AT HOME DISCHARGE PLAN HOME WITH NO SERVICES TRANSPORTATION FAMILY PCPCC DR NADIR DIAMOND PATIENT INSTRUCTED TO CALL FOR POST HOSPITAL FOLLOE UP SURGICAL FOLLOE UP PER DISCHARGED INSTRUCTIONS SELF RESUMPTION OF HER MENTAL HEALTH COUNSELING CONFIRMED SHE HAS HCP NAMING HER MOTHER HER AGENT , REQUESTED COPY BE MAILED IN TO [facility] ALL PAPERWORK COMPLETED
--- NOTE | 2020-08-12 14:22 | HO.POSTANES ---
Post Anesthesia Evaluation Post Anesthesia Evaluation Vital Signs: Vital Signs Temp Pulse Resp BP Pulse Ox 08/12/20 08:00 97.6 F 64 19 132/82 98 08/12/20 04:00 97.7 F 71 18 123/72 98 Anesthesia: General Endotracheal-GETA Mental Status: Awake Pain Control: Satisfactory Nausea/Vomiting: None Hydration: Adequate Anesthesia-Related Issues: No Anes. Related Issues
== END 2020-08-12 12:41 | disposition home or self-care (01) | DRG 403 ==
LOC: HO.SSSA 10:59 → HO.S3 12:06
PROVIDERS: Physician Assistant; Admitting Provider Surgery; PCP Internal Medicine; Visit Provider Surgery
PROC: 0DB64Z3 Excision of Stomach, Percutaneous Endoscopic Approach, Vertical (ICD-10-PCS; CPT 43845; principal; 2020-08-11 08:10)
DX: E66.01 Morbid (severe) obesity due to excess calories (principal); F32.9 Major depressive disorder, single episode, unspecified; F41.9 Anxiety disorder, unspecified; K44.9 Diaphragmatic hernia without obstruction or gangrene; Z98.84 Bariatric surgery status; Z68.41 Body mass index [BMI] 40.0-44.9, adult; Z79.899 Other long term (current) drug therapy
CPT/HCPCS: 36415; 71046; 80048; 81003; 81025; 82040; 85025; 85610; 85730; 86850; 86900; 86901; 87635; 88307; 88342; 93005; 99024; C1776; J0131; J1100; J1170; J2250; J2405; J2550; J2765; J3010

== ENCOUNTER → 2020-09-24 14:09 | Outpatient (BNVA) | payer BC, SELFPAY | PROVIDERS: PCP Internal Medicine; Referring Provider Internal Medicine; Visit Provider Physician Assistant ==

== ENCOUNTER → 2020-10-15 08:17 | Outpatient (BNVA) | payer BC, SELFPAY | PROVIDERS: PCP Internal Medicine; Visit Provider Dietitian, Registered | DX: E66.9 Obesity, unspecified (principal); Z68.37 Body mass index [BMI] 37.0-37.9, adult | CPT/HCPCS: 97803 ==

== ENCOUNTER → 2020-12-10 15:49 | Outpatient (BNVA) | payer BC, SELFPAY | PROVIDERS: PCP Internal Medicine; Visit Provider Surgery ==

== ENCOUNTER → 2021-03-11 08:18 | Outpatient (BNVA) | payer BC, SELFPAY | PROVIDERS: PCP Internal Medicine; Visit Provider Dietitian, Registered | DX: E66.9 Obesity, unspecified (principal); Z68.31 Body mass index [BMI] 31.0-31.9, adult | CPT/HCPCS: 97803 ==